=== PATIENT | female | born 1980 | race Caucasian/White ===

== ENCOUNTER → 2018-06-14 | Outpatient (CLI) | payer BC, OTHER ==
[~2018-06-14] MED LIST: BUPR-42 PO; DULO60CA6 PO; FLUO40CA12 PO; HYDR-3730 PO; HYOS0.1283 SL; LANS30TA3 PO; PANT40TA2 PO; SUCR1TAB36 PO
--- NOTE | 2018-06-15 08:32 | Diagnostic Imaging Report ---
Indication: Routine screening. Comparison is made with prior mammogram from 11/20/2015 and 08/05/2016. 2-D and 3-D bilateral screening mammography was performed with CAD. Both breasts are heterogeneously dense, limiting the sensitivity of mammography. The parenchymal pattern is stable. No mass or malignant-appearing microcalcifications are seen. The axillae are unremarkable. Impression: BI-RADS category 1 No mammographic features suspicious for malignancy are identified. ACR BI-RADS Category 1: Negative. Result letter will be mailed to the patient. Note: At least 10% of breast cancer is not imaged by mammography. Dictated by: Dictated on workstation # [id number]
== END ==
LOC: RAD 13:26
PROVIDERS: ATTEND Family Medicine
DX: Z12.31 Encounter for screening mammogram for malignant neoplasm of breast (principal)
CPT/HCPCS: 77067

== ENCOUNTER → 2018-09-24 | Outpatient (CLI) | payer BC ==
--- NOTE | 2018-09-24 16:06 | Diagnostic Imaging Report ---
PROCEDURE: CT maxillofacial without contrast. TECHNIQUE: Multiple contiguous axial images were obtained through the facial bones without the use of intravenous contrast. INDICATION: Fall with right facial pain. FINDINGS: The mandible is intact. The zygomatic arches are intact. Maxillary sinus garcia appear to be intact. There is no fluid within either maxillary sinus. Nasal bones are intact. The medial and lateral orbital garcia appear to be intact. The globes are unremarkable. There is some mild soft tissue swelling over the right face in the premaxillary region. IMPRESSION: Right facial premaxillary swelling. No definite facial bone fracture is detected. Dictated by: Dictated on workstation # [id number]
== END ==
LOC: RAD 15:40
PROVIDERS: ATTEND Nurse Practitioner Family
DX: S00.83XA Contusion of other part of head, initial encounter (principal); W19.XXXA Unspecified fall, initial encounter
CPT/HCPCS: 70486

== ENCOUNTER → 2018-09-24 | Outpatient (CLI) | payer BC ==
--- NOTE | 2018-09-24 14:08 | Diagnostic Imaging Report ---
INDICATION: Fall on to right cheek with pain and swelling. TIME OF EXAMINATION: 01:52 p.m. FINDINGS: Three views of the facial bones were obtained. Maxillary sinuses are well aerated. No air-fluid level is seen. No intraorbital gas is identified. Ethmoids appear to be well-aerated. The frontal sinus is unremarkable. Sphenoid sinus is clear. No nasal bone fractures identified. IMPRESSION: No abnormalities identified. Note is made that facial bone x-rays show poor sensitivity for a subtle facial bone fractures. If there is high clinical index of concern for facial fracture, CT would be recommended. Dictated by: Dictated on workstation # [id number]
== END ==
LOC: RAD 13:43
PROVIDERS: ATTEND Nurse Practitioner Family
DX: S00.83XA Contusion of other part of head, initial encounter (principal); W19.XXXA Unspecified fall, initial encounter
CPT/HCPCS: 70150

== ENCOUNTER 2019-02-28 19:28 | Emergency (ER) | payer BC ==
[~2019-02-28] VITALS: Ht 172.7 cm; Wt 55.0 kg
[2019-02-28] MEDS ORDERED: ONDANSETRON 4 MG/2 ML (SDV) Z0FRAN IVP ONE ×2 (20:00→20:45)
[2019-02-28] MEDS ORDERED: NS IV 1000 ML 1,000 ML IV SCH (20:00)
[2019-02-28] MEDS: fentaNYL INJECTION 100 MCG/2 ML AMP IVP PRN ×2 (20:02→20:46)
[2019-02-28 20:12] LABS: BASOPHILS % (AUTO) 0 % (0-10); EOSINOPHILS % (AUTO) 0 % (0-10); HEMATOCRIT 38 % (35-52); HEMOGLOBIN 12.9 G/DL (11.5-16.0); LYMPHOCYTES # (AUTO) 1.9 X 10^3 (1.0-4.0); LYMPHOCYTES % (AUTO) 20 % (12-44); MEAN CORPUSCULAR HEMOGLOBIN 32 PG (25-34); MEAN CORPUSCULAR HGB CONC 34 G/DL (32-36); MEAN CORPUSCULAR VOLUME 95 FL (80-99); MEAN PLATELET VOLUME 9.2 FL (7.4-10.4); MONOCYTES # (AUTO) 0.9 X 10^3 (0.0-1.0); MONOCYTES % (AUTO) 10 % (0-12); NEUTROPHILS # (AUTO) 6.5 X 10^3 (1.8-7.8); NEUTROPHILS % (AUTO) 69 % (42-75); PLATELET COUNT 364 10^3/uL (130-400); RED CELL DISTRIBUTION WIDTH 12.4 % (10.0-14.5); WHITE BLOOD COUNT 9.4 10^3/uL (4.3-11.0)
[2019-02-28 20:13] LABS: BILIRUBIN,URINE NEGATIVE (NEGATIVE); CLARITY,URINE CLEAR; COLOR,URINE YELLOW; GLUCOSE, URINE (UA) NEGATIVE (NEGATIVE); KETONES,URINE 2+ (NEGATIVE); LEUKOCYTE ESTERASE ,URINE NEGATIVE (NEGATIVE); NITRITE,URINE NEGATIVE (NEGATIVE); PH,URINE 5 (5-9); PROTEIN,URINE 2+ (NEGATIVE); UROBILINOGEN,URINE NORMAL (NORMAL)
[2019-02-28 20:22] LABS: BACTERIA,URINE NEGATIVE /HPF; SQUAMOUS EPITHELIAL CELL,UR RARE /HPF
[2019-02-28 20:24] LABS: ALANINE AMINOTRANSFERASE 14 U/L (0-55); ALBUMIN 4.6 GM/DL (3.2-4.5); ALKALINE PHOSPHATASE 52 U/L (40-136); AMYLASE 56 U/L (25-125); BILIRUBIN,TOTAL 0.4 MG/DL (0.1-1.0); BUN/CREATININE RATIO 12; CALCIUM 9.8 MG/DL (8.5-10.1); CARBON DIOXIDE 25 MMOL/L (21-32); CHLORIDE 100 MMOL/L (98-107); CREATININE SERUM 0.73 MG/DL (0.60-1.30); GFR ESTIMATED > 60; GLUCOSE 114 MG/DL (70-105); LIPASE 14 U/L (8-78); POTASSIUM 3.2 MMOL/L (3.6-5.0); SODIUM 135 MMOL/L (135-145); TOTAL PROTEIN 7.3 GM/DL (6.4-8.2)
[2019-02-28] MEDS ORDERED: fentaNYL INJECTION 100 MCG/2 ML AMP IVP PRN (20:45)
[2019-02-28] MEDS ORDERED: ONDA4TAB11 PO (20:52)
[2019-02-28] MEDS ORDERED: RX-ONDANSETRON 4 MG ODT (ZOFRAN) PPK #4 PO STA (20:52)
--- NOTE | 2019-02-28 20:52 | ED Abdominal Pain ---
General Chief Complaint: Abdominal/GI Problems Stated Complaint: ABD PAIN,Hx OVARIAN CYSTS Nursing Triage Note: amb to room 9. states that she has been having abd pain v/v since last week. Saw Dr Fuentes and was told she had multi ovarian cysts and to see specialist in [facility]. Pain, n/v has increased today. 2 hydrocodone at 1000 and advil at 1200. Sepsis Screen: No Definite Risk Source of Information: Patient Exam Limitations: No Limitations History of Present Illness Date Seen by Provider: Feb 28, 2019 Time Seen by Provider: 19:55 Initial Comments 39 year old female who presents to the emergency room with complaints of right and lower quadrant abdominal pain. She was recently diagnosed with bilat ovarian cyst but had increasing pain this evening. She is scheduled for consult to have ovaries removed on next Monday. Timing/Duration: 2-3 Days Location: [facility], [facility] Associated Symptoms: Denies Symptoms Allergies and Home Medications Allergies Coded Allergies: fentanyl (Verified Allergy, Mild, ITCHING, 12/24/15) acetaminophen (Unverified Allergy, Unknown, 04/22/15) propoxyphene (Unverified Allergy, Unknown, 04/22/15) Home Medications Duloxetine HCl 60 Mg Capsule.dr, 60 MG PO HS, (Reported) Hydrocodone/Acetaminophen 1 Each Tablet, 1-2 EACH PO Q4H Prescribed by: MAGALYS STARR on 12/24/15 0922 Ondansetron 4 Mg Tab.rapdis, 4 MG PO Q4H PRN for NAUSEA/VOMITING-1ST LINE Prescribed by: DELL BARBER on 02/28/192051 Pantoprazole Sodium 40 Mg Tablet.dr, 40 MG PO DAILY Prescribed by: MAGALYS STARR on 04/22/15 1106 Patient Home Medication List Home Medication List Reviewed: Yes Review of Systems Review of Systems Constitutional: see HPI; No chills, No fever Gastrointestinal: See HPI, Abdominal Pain All Other Systems Reviewed Negative Unless Noted: Yes Past Rbqwbgp-Nwurkb-Riliqm Hx Past Med/Social Hx: Reviewed Nursing Past Med/Soc Hx Patient Social History Alcohol Use: Occasionally Uses Recreational Drug Use: No Smoking Status: Never a Smoker 2nd Hand Smoke Exposure: No Recent Foreign Travel: No Contact w/Someone Who Travel: No Recent Infectious Disease Expo: No Physical Abuse: No Sexual Abuse: No Mistreated: No Fear: No Immunizations Up To Date Date of Pneumonia Vaccine: Apr 22, 2010 Date of Influenza Vaccine: May 22, 2014 Past Medical History Surgeries: Yes (c/s x2, ) Section, Gallbladder, Hysterectomy Respiratory: No Cardiac: No Neurological: No 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 4.0oz. 54.101566sp; 21.80 BMI Method:Stated General Appearance: WD/WN, no apparent distress Respiratory: chest non-tender, lungs clear, normal breath sounds, no res piratory distress, no accessory muscle use Cardiovascular: normal peripheral pulses, regular rate, rhythm, no edema, no gallop, no JVD, no murmur Gastrointestinal: normal bowel sounds, soft, no organomegaly, no pulsatile mass, tenderness (right and left lower quadrant) Neurologic/Psychiatric: alert, normal mood/affect, oriented x 3 Skin: normal color, warm/dry Progress/Results/Core Measures Results/Orders Lab Results Laboratory Tests Test 02/28/19 19:45 Range/Units White Blood Count 9.4 4.3-11.0 10^3/uL Red Blood Count 3.99 L 4.35-5.85 10^6/uL Hemoglobin 12.9 11.5-16.0 G/DL Hematocrit 38 35-52 % Mean Corpuscular Volume 95 80-99 FL Mean Corpuscular Hemoglobin 32 25-34 PG Mean Corpuscular Hemoglobin Concent 34 32-36 G/DL Red Cell Distribution Width 12.4 10.0-14.5 % Platelet Count 364 130-400 10^3/uL Mean Platelet Volume 9.2 7.4-10.4 FL Neutrophils (%) (Auto) 69 42-75 % Lymphocytes (%) (Auto) 20 12-44 % Monocytes (%) (Auto) 10 0-12 % Eosinophils (%) (Auto) 0 0-10 % Basophils (%) (Auto) 0 0-10 % Neutrophils # (Auto) 6.5 1.8-7.8 X 10^3 Lymphocytes # (Auto) 1.9 1.0-4.0 X 10^3 Monocytes # (Auto) 0.9 0.0-1.0 X 10^3 Eosinophils # (Auto) 0.0 0.0-0.3 10^3/uL Basophils # (Auto) 0.0 0.0-0.1 10^3/uL Urine Color YELLOW Urine Clarity CLEAR Urine pH 5 5-9 Urine Specific Central 1.025 H 1.016-1.022 Urine Protein 2+ H NEGATIVE Urine Glucose (UA) NEGATIVE NEGATIVE Urine Ketones 2+ H NEGATIVE Urine Nitrite NEGATIVE NEGATIVE Urine Bilirubin NEGATIVE NEGATIVE Urine Urobilinogen NORMAL NORMAL MG/DL Urine Leukocyte Esterase NEGATIVE NEGATIVE Urine RBC (Auto) NEGATIVE NEGATIVE Urine RBC NONE /HPF Urine WBC NONE /HPF Urine Squamous Epithelial Cells RARE /HPF Urine Crystals NONE /LPF Urine Bacteria NEGATIVE /HPF Urine Casts NONE /LPF Urine Mucus SMALL H /LPF Urine Culture Indicated NO Sodium Level 135 135-145 MMOL/L Potassium Level 3.2 L 3.6-5.0 MMOL/L Chloride Level 100 98-107 MMOL/L Carbon Dioxide Level 25 21-32 MMOL/L Anion Gap 10 5-14 MMOL/L Blood Urea Nitrogen 9 7-18 MG/DL Creatinine 0.73 0.60-1.30 MG/DL Estimat Glomerular Filtration Rate > 60 BUN/Creatinine Ratio 12 Glucose Level 114 H 70-105 MG/DL Calcium Level 9.8 8.5-10.1 MG/DL Corrected Calcium 8.5-10.1 MG/DL Total Bilirubin 0.4 0.1-1.0 MG/DL Aspartate Amino Transf (AST/SGOT) 13 5-34 U/L Alanine Aminotransferase (ALT/SGPT) 14 0-55 U/L Alkaline Phosphatase 52 40-136 U/L Total Protein 7.3 6.4-8.2 GM/DL Albumin 4.6 H 3.2-4.5 GM/DL Amylase Level 56 25-125 U/L Lipase 14 8-78 U/L My Orders Orders - BERNOT,DELL Ns Iv 1000 Ml (Sodium Chloride 0.9%) (02/28/19 20:00) Fentanyl Injection (Sublimaze Injection (02/28/19 20:00) Ondansetron Injection (Zofran Injectio (02/28/19 20:00) Us Non Ob Transvaginal [id number] (02/28/19 20:01) Comprehensive Metabolic Panel (02/28/19 20:01) Lipase (02/28/19 20:01) Amylase (02/28/19 20:01) Ua Culture If Indicated (02/28/19 20:01) Ed Iv/Invasive Line Start (02/28/19 20:01) Cbc With Automated Diff (02/28/19 20:01) Fentanyl Injection (Sublimaze Injection (02/28/19 20:45) Ondansetron Injection (Zofran Injectio (02/28/19 20:45) Rx-Ondansetron Po (Rx-Zofran Po) (02/28/19 20:52) Rx-Hydrocodone/Apap 5-325 Mg (Rx-Vicodin (02/28/19 21:00) Iv Push Office Messenger Helper Ed (02/28/19 ) Medications Given in ED Vital Signs/I&O 02/28/19 02/28/19 19:38 21:03 Temp 97.8 Pulse 81 76 Resp 16 16 B/P (MAP) 136/93 (107) 122/63 (82) Pulse Ox 100 99 Blood Pressure Mean: 107 Departure Impression Primary Impression: Ovarian cyst Disposition: HOME, SELF-CARE Condition: Stable/Unchanged Departure-Patient Inst. Decision time for Depature: 20:50 Referrals: LEONEL FUENTES DO (PCP) Primary Care Physician Patient Instructions: Ovarian Cysts Add. Discharge Instructions: Keep your appointment as scheduled with your surgeon in [place] for Monday. Take medication as directed. Follow-up with your primary care as needed. Return back to the emergency room for worsening symptoms or concerns as needed. All dis charge instructions reviewed with patient and/or family. Voiced understanding. Scripts Ondansetron (Ondansetron Odt) 4 Mg Tab.rapdis 4 MG PO Q4H PRN for NAUSEA/VOMITING-1ST LINE, #20 TAB Prov: DELL BARBER 02/28/19 DELL BARBER Feb 28, 2019 20:52
[2019-02-28] MEDS ORDERED: RX-HYDROCODONE/APAP 5/325 MG #4 TAB PK PO PRN (21:00)
[2019-02-28 21:03] VITALS: BP 122/63
--- NOTE | 2019-02-28 21:42 | Diagnostic Imaging Report ---
INDICATION: Abdominal pain. History of ovarian cysts. Uterus removed 10 years ago. EXAMINATION: Ultrasound, non-OB, transvaginal, 02/28/2019. FINDINGS: The uterus is surgically absent. The right ovary is 2.0 x 2.9 x 1.9 cm in size and the left measures 2.7 x 2.9 x 2.6 cm. There is a cystic lesion in the left ovary which is 1.9 x 1.8 x 2.1 cm. This is fairly simple in appearance. The right ovary contains a small cystic area which is 1.2 cm in greatest dimension. Several follicles are otherwise noted in both ovaries. No adnexal masses are seen. There is a nonspecific echogenic focus on the right which may be artifact as it is only seen on one view. IMPRESSION: Cystic changes in both ovaries, fairly simple in appearance; however, followup in 2-3 months would be recommended for reevaluation of these findings. Dictated by: Dictated on workstation # [id number]
== END 2019-02-28 21:03 | disposition home or self-care (01) ==
LOC: EDUNIT# 19:28 → ER 19:29
DX: N83.201 Unspecified ovarian cyst, right side (principal); N83.202 Unspecified ovarian cyst, left side; F41.9 Anxiety disorder, unspecified; F32.9 Major depressive disorder, single episode, unspecified; Z88.5 Allergy status to narcotic agent; Z90.710 Acquired absence of both cervix and uterus
CPT/HCPCS: 36415; 76830; 80053; 81000; 82150; 83690; 85025; 96361; 96374; 96375; 96376

== ENCOUNTER → 2020-03-16 | Outpatient (CLI) | payer BC ==
[~2020-03-16] MED LIST changes: +ESTR2TAB4 PO; +ONDA4TAB11 PO; +SERT100T PO
--- NOTE | 2020-03-16 15:15 | Diagnostic Imaging Report ---
PROCEDURE: CT abdomen and pelvis without contrast. TECHNIQUE: Multiple contiguous axial images were obtained through the abdomen and pelvis without the use of intravenous contrast. Auto Exposure Controls were utilized during the CT exam to meet ALARA standards for radiation dose reduction. INDICATION: Upper abdominal pain and recent hernia repair. COMPARISON: No prior studies are available for comparison. FINDINGS: Lung bases are clear. The liver is unremarkable. The gallbladder is surgically absent. No biliary ductal dilatation is seen. Pancreas and spleen are unremarkable. No adrenal mass is detected. No definite renal calculus or hydronephrosis is detected. Aorta is nonaneurysmal. Bowel loops are normal caliber. No obstruction is identified. No definite abdominal wall defect or hernia is detected. Bladder is unremarkable. Uterus appears to be surgically absent. Bony structures are nonacute. IMPRESSION: Unremarkable noncontrast CT abdomen and pelvis. No definite acute feature is seen. No definite hernia is identified. Dictated by: Dictated on workstation # [id number]
== END ==
LOC: RAD 15:15
PROVIDERS: ATTEND Surgery
DX: R10.9 Unspecified abdominal pain (principal)
CPT/HCPCS: 74176

== ENCOUNTER 2020-04-03 11:45 | Outpatient (CLI) | payer BC ==
[~2020-04-03] VITALS: Ht 172.7 cm; Wt 59.1 kg
== END 2020-04-03 12:00 | disposition home or self-care (01) ==
LOC: PREOP 11:45
PROVIDERS: ATTEND Surgery
DX: Z01.818 Encounter for other preprocedural examination (principal)

== ENCOUNTER 2020-04-09 07:57 | Day surgery (SDC) | payer BC ==
[~2020-04-09] VITALS: Ht 172.7 cm; Wt 59.1 kg
[2020-04-09] VITALS (10 sets, daily range): BP systolic 96–110; BP diastolic 58–79
[2020-04-09] MEDS ORDERED: ceFAZolin 2 GM IV Premixed 50 ML IV ONE (08:15)
[2020-04-09] MEDS ORDERED: BUP/EPI 0.5% 1:200,000 (MARCAINE) 10ML VIAL IJ ONE (08:26)
[2020-04-09] MEDS ORDERED: fentaNYL INJECTION 100 MCG/2 ML AMP ONE (08:27)
[2020-04-09] MEDS ORDERED: MIDAZOLAM 2 MG/2 ML (VERSED) VIAL ONE (08:27)
[2020-04-09] MEDS ORDERED: SUCCINYLCHOLINE INJ 100 MG/5 ML SYR ONE (08:27)
[2020-04-09] MEDS ORDERED: ONDANSETRON 4 MG/2 ML (SDV) Z0FRAN ONE (08:27)
[2020-04-09] MEDS ORDERED: ROCURONIUM 10 MG/ML 5 ML SYRINGE IV ONE ×2 (08:27→09:54)
[2020-04-09] MEDS ORDERED: LIDOCAINE PF 2% 5 ML (XYLOCAINE) VIAL ONE (08:27)
[2020-04-09] MEDS ORDERED: proPOfol 200 MG/20 ML (DIPRIVAN) VIAL IV ONE ×2 (08:27→09:54)
[2020-04-09] MEDS: LACTATED RINGERS 1,000 ML IV PRN ×2 (08:30→09:45)
[2020-04-09] MEDS ORDERED: MIDAZOLAM 2 MG/2 ML (VERSED) VIAL IV ONE (08:30)
[2020-04-09 08:37] LABS: BASOPHILS % (AUTO) 1 % (0-10); EOSINOPHILS # (AUTO) 0.1 10^3/uL (0.0-0.3); EOSINOPHILS % (AUTO) 1 % (0-10); HEMATOCRIT 38 % (35-52); LYMPHOCYTES # (AUTO) 1.8 X 10^3 (1.0-4.0); LYMPHOCYTES % (AUTO) 25 % (12-44); MEAN CORPUSCULAR HEMOGLOBIN 32 PG (25-34); MEAN CORPUSCULAR HGB CONC 34 G/DL (32-36); MEAN CORPUSCULAR VOLUME 94 FL (80-99); MEAN PLATELET VOLUME 8.9 FL (7.4-10.4); MONOCYTES # (AUTO) 0.9 X 10^3 (0.0-1.0); MONOCYTES % (AUTO) 12 % (0-12); NEUTROPHILS # (AUTO) 4.5 X 10^3 (1.8-7.8); NEUTROPHILS % (AUTO) 62 % (42-75); PLATELET COUNT 361 10^3/uL (130-400); RED CELL DISTRIBUTION WIDTH 12.4 % (10.0-14.5); WHITE BLOOD COUNT 7.3 10^3/uL (4.3-11.0)
--- NOTE | 2020-04-09 08:39 | Progress Note-Pre Operative ---
Pre-Operative Progress Note H&P Reviewed The H&P was reviewed, patient examined and no changes noted. Date Seen by Provider: Apr 09, 2020 Time Seen by Provider: 08:35 Date H&P Reviewed: Apr 09, 2020 Time H&P Reviewed: 08:30 Pre-Operative Diagnosis: Left upper quadrant pain ASAF HUANG APRN Apr 09, 2020 08:39
[2020-04-09] MEDS ORDERED: OXYC1TAB16 PO (08:43)
[2020-04-09] MEDS ORDERED: ONDANSETRON 4 MG/2 ML (SDV) Z0FRAN IVP PRN (08:45)
[2020-04-09] MEDS ORDERED: oxyCODONE/APAP 5/325MG (PERCOCET 5) TABLET PO PRN (08:45)
[2020-04-09] MEDS ORDERED: ACETAMINOPHEN 325 MG TABLET PO PRN (08:45)
--- NOTE | 2020-04-09 08:46 | Discharge Inst-Surgical ---
D/C Lap Instructions-KIDO Reconcile Patient Problems Problems Reviewed?: Yes New, Converted, or Re-Newed RX: RX on Chart Follow Up Appt in 2 weeks Activity as tolerated No driving for 24 hours No driving while on pain medications Incentive Spirometry use every 2 hours while awake Regular Diet Symptoms to Report: Fever over 101 degree F, Nausea/Vomiting Infection Signs and Symptoms to report: Increased redness, Foul odor of wound, Increased drainage Bathing instructions: May shower Operative Area Clean/Dry; Keep incision clean/dry If any problems/questions: Contact your physician or go to Emergency Room ASAF HUANG APRN Apr 09, 2020 08:46
[2020-04-09] MEDS ORDERED: GLYCOPYRROLATE 0.2 MG/ML (ROBINUL) 2 ML VIAL ONE (09:37)
[2020-04-09] MEDS ORDERED: NEOSTIGMINE 3 MG/3 ML VIAL ONE (09:37)
[2020-04-09] MEDS ORDERED: SEVOFLURANE (ULTANE) 15 ML INHAL SOLN ONE (09:53)
[2020-04-09] MEDS ORDERED: KETOROLAC 30 MG/ML VIAL ONE (10:06)
--- NOTE | 2020-04-09 10:06 | Progress Note-Post Operative ---
Post-Operative Progess Note Surgeon (s)/Psychological Aide (s) Surgeon MAGALYS STARR MD Psychological Aide: aryan dickerson TELECOMMUNICATIONS NETWORK ENGINEER Pre-Operative Diagnosis Left upper quadrant pain Post-Operative Diagnosis abdominal wall adhesions. Procedure & Operative Findings Date of Procedure 04/09/20 Procedure Performed/Findings diagnostic laparoscopy. lysis of adhesions. Anesthesia Type get Estimated Blood Loss Estimated blood loss (mL): minimal Specimens/Packing Specimens Removed none MAGALYS STARR MD Apr 09, 2020 10:06
[2020-04-09] MEDS ORDERED: PROMETHAZINE INJ 25 MG/ML (PHENERGAN) AMP IVP ONE (10:15)
[2020-04-09] MEDS ORDERED: morphine INJ 10 MG/ML 1ML (SYR OR VIAL) IVP ONE (10:15)
[2020-04-09] MEDS: morphine INJ 10 MG/ML 1ML (SYR OR VIAL) IVP PRN ×2 (10:43→10:44)
--- NOTE | 2020-04-09 18:37 | OPERATIVE REPORT ---
DATE OF SERVICE: 04/09/2020 ATTENDING PRIMARY CARE PHYSICIAN: Dr. Jonas Fuentes. PREOPERATIVE DIAGNOSIS: Persistent left upper abdominal quadrant pain. POSTOPERATIVE DIAGNOSIS: Mild infraumbilical abdominal wall adhesions. No hernias. PROCEDURE: Diagnostic laparoscopy, lysis of adhesions. SURGEON: Dr. Starr. MANAGER GRAPHIC: Jonathan Perez APRN. ANESTHESIA: General endotracheal. ESTIMATED BLOOD LOSS: Minimal. FINDINGS: Previous hernia intact. No other hernias identified. There were mild abdominal wall adhesions to the midline infraumbilically. The remainder of the pelvis, colon, small bowel, omentum, liver and abdominal wall appeared normal. DISPOSITION: The patient tolerated the procedure well. INDICATIONS: The patient is a 40-year-old female who has had pain in the left upper abdominal quadrant, which has been around for approximately two years. She was seen in the office and found to have reproducible pain along the previous port site incision in the left upper abdominal quadrant. She underwent exploration in 11/2019 and found to have a small preperitoneal hernia and this was repaired by preperitoneal approach. No other hernias were identified. Her only other surgeries were vaginal partial hysterectomy, laparoscopic bilateral salpingo-oophorectomy and laparoscopic cholecystectomy. She presented with recurrent pain, more medial to her previous hernia repair and there was a small defect that was identifiable. She is otherwise tolerating regular diet and having normal bowel movements. DESCRIPTION OF PROCEDURE: The patient was brought to the operating room, laid supine on the table. After adequate IV pain and sedative medications and general endotracheal intubation, the abdomen was prepped and draped in standard surgical fashion. A 0.5% Marcaine with epinephrine was then used to anesthetize the overlying skin supraumbilically and a transverse skin incision made using a 15 blade. A sharp towel clamp was used to retract the abdominal wall anteriorly and a Veress needle inserted with a low opening pressure of 0 mmHg. The abdomen was then insufflated to 15 mmHg pressure. The Veress needle removed and a 5 mm XL trocar placed followed by a 5 mm 45-degree angle laparoscope visualizing the peritoneal cavity. A 4-quadrant abdominal exploration was performed. The previous preperitoneal hernia repair was identified and intact and medial to this where she had the discomfort, there were no other hernias identified. There were intra-abdominal adhesions towards the anterior abdominal wall just infraumbilically. The remainder of the pelvis, small bowel, colon, omentum, liver and stomach appeared normal. It was then decided to proceed with takedown of adhesions, which were done using a grasper bluntly with visualization of good hemostasis. The abdomen was desufflated and the port removed. The skin incision was then closed using 4-0 Monocryl running subcuticular suture. Wound was then cleaned and covered with Dermabond. The patient tolerated the procedure well. We will start IV normal pain medication as well as a clear liquid diet. When she is tolerating clears, has good pain control with oral pain medications, ambulating well, we will discharge her home. She will be instructed to do no heavy lifting or exertion for the next two weeks as well. Job ID: [id number] DocumentID: [id number] Dictated Date: 04/09/2020 10:14:06 Recreational Specialist Date: 04/09/2020 18:36:55 Dictated By: MAGALYS STARR MD
== END 2020-04-09 11:55 | disposition home or self-care (01) ==
LOC: SDC 07:57
PROVIDERS: ATTEND Surgery
DX: K66.0 Peritoneal adhesions (postprocedural) (postinfection) (principal); K21.9 Gastro-esophageal reflux disease without esophagitis; F32.9 Major depressive disorder, single episode, unspecified; F41.9 Anxiety disorder, unspecified; Z79.899 Other long term (current) drug therapy; Z11.2 Encounter for screening for other bacterial diseases
CPT/HCPCS: 36415; 85025; 87081; 94664

== ENCOUNTER → 2020-06-29 | Outpatient (CLI) | payer BC ==
[~2020-06-29] MED LIST changes: +OXYC1TAB16 PO
--- NOTE | 2020-06-29 10:39 | Diagnostic Imaging Report ---
EXAMINATION: Magnetic resonance imaging of the left shoulder without contrast. DATE: June 29, 2020. COMPARISON: None. HISTORY: 40-year-old female, left shoulder pain. TECHNIQUE: Magnetic Resonance Imaging sequences were performed of the shoulder without contrast. FINDINGS: ROTATOR CUFF, LIGAMENTS, TENDONS, AND MUSCLES: The supraspinatus, infraspinatus, teres minor, and subscapularis tendons and muscles are intact. There is normal rotator cuff muscle bulk and signal. LONG HEAD OF BICEPS: The long head of biceps tendon is not present in its intra-articular segment or within the bicipital groove. There is artifact at the level of the proximal humeral diaphysis. Recommend correlation for prior biceps tenodesis. GLENOHUMERAL JOINT: The humeral head is well positioned relative to the glenoid. The labrum is grossly intact. There is no identified paralabral cyst. The articular cartilage is grossly intact. There is no joint effusion. ACROMIOCLAVICULAR JOINT: The acromioclavicular joint is normally aligned. The coracoclavicular and coracoacromial ligaments are intact. There are no degenerative changes of the acromioclavicular joint. BONE: There is no os acromiale. There is no Hill-Sachs deformity. The bone marrow signal is within normal limits. Specifically, negative for fracture, osteomyelitis, osteonecrosis, or marrow replacing process. BURSAE AND SOFT TISSUES: The bursae and soft tissue surrounding the shoulder are unremarkable. IMPRESSION: 1. Probable postoperative changes biceps tenodesis. Recommend correlation with past surgical history. 2. Intact rotator cuff. 3. Grossly intact labrum and unremarkable additional glenohumeral joint evaluation. 4. Intact acromioclavicular joint. 5. No acute fracture, bone contusion, or other notable bone marrow signal abnormality. Dictated by: Dictated on workstation # [id number]
== END ==
LOC: RAD 08:00
PROVIDERS: ATTEND Orthopaedic Surgery
DX: S46.012D Strain of muscle(s) and tendon(s) of the rotator cuff of left shoulder, subsequent encounter (principal); X58.XXXD Exposure to other specified factors, subsequent encounter
CPT/HCPCS: 73221

== ENCOUNTER → 2020-12-04 | Outpatient (CLI) | payer BC | LOC: LABNPT 06:00 | PROVIDERS: ATTEND Internal Medicine Gastroenterology | DX: Z01.812 Encounter for preprocedural laboratory examination (principal); Z20.822 Contact with and (suspected) exposure to COVID-19 | CPT/HCPCS: 87635 ==

== ENCOUNTER 2021-07-28 08:30 | Outpatient (RCR) | payer BC ==
[~2021-07-28 08:30] MED LIST changes: -DULO60CA6 PO; +DULO60CA7 PO
== END 2021-08-13 | disposition home or self-care (01) ==
PROVIDERS: ATTEND Orthopaedic Surgery
DX: M25.512 Pain in left shoulder (principal); Z96.612 Presence of left artificial shoulder joint

== ENCOUNTER → 2021-09-13 | Outpatient (RCR) | payer BC | END | disposition home or self-care (01) | PROVIDERS: ATTEND Orthopaedic Surgery | DX: S43.402D Unspecified sprain of left shoulder joint, subsequent encounter (principal); X58.XXXD Exposure to other specified factors, subsequent encounter ==

== ENCOUNTER 2021-10-01 09:58 | Outpatient (RCR) | payer BC | END 2021-10-01 14:30 | disposition home or self-care (01) | PROVIDERS: ATTEND Orthopaedic Surgery | DX: S43.402D Unspecified sprain of left shoulder joint, subsequent encounter (principal); X58.XXXD Exposure to other specified factors, subsequent encounter ==

== ENCOUNTER → 2021-10-11 | Outpatient (RCR) | payer BC | END | disposition home or self-care (01) | PROVIDERS: ATTEND Orthopaedic Surgery | DX: G58.8 Other specified mononeuropathies (principal); M25.512 Pain in left shoulder ==

== ENCOUNTER 2021-11-08 08:04 | Outpatient (RCR) | payer BC | END 2021-11-11 | disposition home or self-care (01) | PROVIDERS: ATTEND Orthopaedic Surgery | DX: G58.8 Other specified mononeuropathies (principal); Z98.890 Other specified postprocedural states ==

== ENCOUNTER 2021-12-10 08:00 | Outpatient (RCR) | payer BC | END 2021-12-11 | disposition home or self-care (01) | PROVIDERS: ATTEND Orthopaedic Surgery | DX: M79.2 Neuralgia and neuritis, unspecified (principal); Z98.890 Other specified postprocedural states ==

== ENCOUNTER 2022-08-05 08:36 | Outpatient (RCR) | payer BC | END 2022-08-13 | disposition home or self-care (01) | PROVIDERS: ATTEND Orthopaedic Surgery | DX: M75.22 Bicipital tendinitis, left shoulder (principal) ==

== ENCOUNTER 2022-09-12 14:28 | Outpatient (RCR) | payer BC | END 2022-09-13 | disposition home or self-care (01) | PROVIDERS: ATTEND Orthopaedic Surgery | DX: M75.22 Bicipital tendinitis, left shoulder (principal) ==

== ENCOUNTER → 2022-09-21 | Outpatient (CLI) | payer BC ==
[~2022-09-21] VITALS: Ht 172.7 cm; Wt 56.4 kg
[~2022-09-21] MED LIST changes: +LIDOCAINE 1% INJ 30 ML (XYLOCAINE) VIAL INJ ONE
--- NOTE | 2022-09-21 11:12 | Diagnostic Imaging Report ---
INDICATION: Left breast nodule. Patient presents for ultrasound-guided core biopsy. Patient brought to the ultrasound suite placed on table in the supine position. Ultrasound imaging of the left breast was performed to evaluate appropriate entry site. Left breast was then prepped and draped in the usual sterile fashion. Small amount of 1% lidocaine was utilized for local anesthesia. Multiple core biopsies of the circumscribed ovoid hypoechoic nodule at the 2 o'clock location of the left breast were obtained utilizing the 14-gauge Achieve needle. A marker clip was then deployed. Hemostasis was obtained using manual compression. Patient tolerated the procedure well and was sent for post procedure mammogram in satisfactory condition. IMPRESSION: Successful ultrasound guided core biopsy of the circumscribed hypoechoic solid nodule 2 o'clock location left breast. Pathology results are currently pending. Dictated by: Dictated on workstation # [id number]
--- NOTE | 2022-09-21 13:51 | Diagnostic Imaging Report ---
Indication: Status post ultrasound-guided left breast biopsy. Unilateral left 2-D CC and ML mammography was performed after patient underwent ultrasound-guided core biopsy. There is a marker clip located in the upper and outer aspect of the left breast posterior depth. IMPRESSION: Marker clip placement, status post ultrasound-guided left breast biopsy. Dictated by: Dictated on workstation # [id number]
== END ==
LOC: RAD 09:42
PROVIDERS: ATTEND Family Medicine
DX: N63.21 Unspecified lump in the left breast, upper outer quadrant (principal)
CPT/HCPCS: 19083; 77065; G0279

== ENCOUNTER → 2022-10-11 | Outpatient (RCR) | payer BC ==
[~2022-10-11] MED LIST changes: -LIDOCAINE 1% INJ 30 ML (XYLOCAINE) VIAL INJ ONE
== END | disposition home or self-care (01) ==
PROVIDERS: ATTEND Orthopaedic Surgery
DX: M75.22 Bicipital tendinitis, left shoulder (principal)

== ENCOUNTER 2022-10-18 08:00 | Outpatient (RCR) | payer BC | END 2022-11-11 | disposition home or self-care (01) | PROVIDERS: ATTEND Orthopaedic Surgery | DX: M75.22 Bicipital tendinitis, left shoulder (principal) ==